=== PATIENT | male | born 1950 | race African-American/Black ===

== ENCOUNTER 2018-12-20 04:07 | Observation (INO) | payer OTHER ==
[2018-12-20 05:26] LABS: Absolute Lymphocytes (CBC) 0.5 K/uL (0.7-4.9); Basophils % 0.2 % (0-1.3); Eosinophils % 0.4 % (0-4.4); Hematocrit 48.2 % (39.6-49.0); Lymphocytes % 5.4 % (15.3-44.8); MPV 8.8 fL (7.6-11.3); Monocytes % 10.2 % (3.3-12.3); RBC Red Blood Cell Count 5.79 M/uL (4.33-5.43)
[2018-12-20] MEDS ORDERED: ACETAMINOPHEN 325 MG TABLET ONE (05:37)
[2018-12-20] MEDS ORDERED: CEFTRIAXONE/SWI 1gm 1 GM/10 ML SYR ONE (05:38)
[2018-12-20] MEDS ORDERED: NA CHLORIDE 0.9% 1,000 ML ONE ×3 (05:38→07:57)
[2018-12-20 05:46] LABS: Urine Bacteria <20 /HPF (NONE SEEN); Urine Culture Reflex Order NOT NEEDED; Urine RBC TNTC /HPF (NONE SEEN)
[2018-12-20 06:03] LABS: Potassium 4.5 mmol/L (3.5-5.1)
[2018-12-20] MEDS ORDERED: IBUPROFEN 400 MG TAB ONE (07:07)
--- NOTE | 2018-12-20 08:39 | ER ---
Nurse's Notes [facility] Name: Stanley Woodson Age: 68 yrs Sex: Male : 1950 Arrival Date: 12/20/2018 Time: 04:09 Bed 20 Private MD: John Pederson V Diagnosis: Other sepsis;Acute prostatitis;Hypotension Presentation: 12/20 04:38 Presenting complaint: Patient states: Diagnosed with UTI few days ago now having fever ao and nausea. Transition of care: patient was not received from another setting of care. Onset of symptoms is unknown. Risk Assessment: Do you want to hurt yourself or someone else? Patient reports no desire to harm self or others. Initial Sepsis Screen: Does the patient meet any 2 criteria? Temp <36.0*C (96.8*F)) or > 38.3*C (100.9*F). HR > 90 bpm. Yes Does the patient have a suspected source of infection? Yes: Dysuria/Frequency/Urgency/UTI. Care prior to arrival: None. 04:38 Method Of Arrival: Ambulatory ao 04:38 Acuity: WIL[place] 3 ao Historical: - Allergies: 04:41 NKA; ao - Home Meds: 04:41 losartan Oral [Active]; Cipro Oral [Active]; ao - PMHx: 04:41 Hypertension; ao - PSHx: 04:41 None; ao - Immunization history:: Adult Immunizations up to date. - Social history:: Smoking status: Patient/guardian denies using tobacco, Patient/guardian denies using alcohol, street drugs. - Ebola Screening: : Patient negative for fever greater than or equal to 101.5 degrees Fahrenheit, and additional compatible Ebola Virus Disease symptoms Patient denies exposure to infectious person Patient denies travel to an Ebola-affected area in the 21 days before illness onset. - Family history:: not pertinent. - Hospitalizations: : No recent hospitalization is reported. Screenin:44 Abuse screen: Denies threats or abuse. Denies injuries from another. Nutritional ao screening: No deficits noted. Tuberculosis screening: No symptoms or risk factors identified. Fall Risk None identified. Assessment: 04:42 General: Appears in no apparent distress. comfortable, Behavior is calm, cooperative, ao appropriate for age. Pain: Denies pain. Neuro: Level of Consciousness is awake, alert, obeys commands, Oriented to person, place, time, situation, Appropriate for age Moves all extremities. Full function Speech is normal, Facial symmetry appears normal. Cardiovascular: Capillary refill < 3 seconds Patient's skin is warm and dry. Respiratory: Airway is patent Respiratory effort is even, unlabored, Respiratory pattern is regular, symmetrical. GI: Abdomen is non-distended. : Reports urinary frequency, since 3 day ago. EENT: No signs and/or symptoms were reported regarding the EENT system. Derm: No signs and/or symptoms reported regarding the dermatologic system. Musculoskeletal: Circulation, motion, and sensation intact. Range of motion:. 05:50 Reassessment: Patient appears in no apparent distress at this time. Patient and/or ao family updated on plan of care and expected duration. Pain level reassessed. Patient is alert, oriented x 3, equal unlabored respirations, skin warm/dry/pink. 06:45 Reassessment: Patient appears in no apparent distress at this time. Patient and/or ao family updated on plan of care and expected duration. Pain level reassessed. Patient is alert, oriented x 3, equal unlabored respirations, skin warm/dry/pink. Patient back from CT. Waiting on report. 07:33 Reassessment: Patient appears in no apparent distress at this time. Reassessment: hb Patient appears in no apparent distress at this time. Patient and/or family updated on plan of care and expected duration. Pain level reassessed. 08:30 Reassessment: Patient appears in no apparent distress at this time. Patient and/or hb family updated on plan of care and expected duration. Pain level reassessed. Patient is alert, oriented x 3, equal unlabored respirations, skin warm/dry/pink. 09:30 Reassessment: Patient appears in no apparent distress at this time. Patient and/or hb family updated on plan of care and expected duration. Pain level reassessed. Patient is alert, oriented x 3, equal unlabored respirations, skin warm/dry/pink. Vital Signs: 04:41 BP 126 / 63; Pulse 105; Resp 20; Temp 101.5(O); Pulse Ox 98% on R/A; Weight 74.84 kg ao (R); Height 5 ft. 4 in. (162.56 cm) (R); 05:42 BP 99 / 60; Pulse 98; Resp 18; Pulse Ox 98% on R/A; Pain 0/10; ao 05:50 BP 101 / 53; Pulse 107; Resp 20; Temp 101.7(O); Pulse Ox 96% on R/A; Pain 0/10; ao 07:30 BP 90 / 53; Pulse 88; Resp 23; Pulse Ox 96% on R/A; hb 07:50 Temp 99.5(O); hb 08:26 BP 99 / 56; Pulse 82; Resp 20; Temp 99.0(O); Pulse Ox 95% on R/A; mh5 09:20 BP 93 / 59; Pulse 72; Resp 14; Temp 98.6(O); Pulse Ox 97% on R/A; mh5 04:41 Body Mass Index 28.32 (74.84 kg, 162.56 cm) ao ED Course: 04:09 Patient arrived in ED. am2 04:09 John Pederson MD is Private Physician. am2 04:20 Scott Mae MD is Attending Physician. rn 04:38 Chandana Lerma RN is Primary Nurse. ao 04:39 Triage completed. ao 04:42 Arm band placed on right wrist. 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 04:44 Patient has correct armband on for positive identification. 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 Pulse ao ox on. NIBP on. 05:34 Urine Culture Sent. ao 06:10 X-ray completed. Portable x-ray completed in exam room. Patient tolerated procedure kw well. 06:11 XRAY Chest (1 view) In Process Unspecified. EDMS 06:45 CT completed. Patient tolerated procedure well. Patient moved to CT via stretcher. Patient moved back from CT. 06:49 Stone Protocol In Process Unspecified. EDMS 06:49 Andrew Fernandes PA is PHCP. cp 08:37 John Pederson MD is Hospitalizing Provider. cp 10:00 No provider procedures requiring assistance completed. hb 10:00 Patient admitted, IV remains in place. hb Administered Medications: 05:33 Drug: Tylenol 650 mg Route: PO; ao 07:04 Follow up: Response: No adverse reaction ao 05:33 Drug: NS 0.9% 1000 ml Route: IV; Rate: 1000 ml; Site: right antecubital; ao 07:05 Follow up: IV Status: Completed infusion; IV Intake: 1000ml ao 05:34 Drug: Rocephin - (cefTRIAXone) 1 grams Route: IVPB; Infused Over: 30 mins; Site: right ao antecubital; 07:05 Follow up: Response: No adverse reaction ao 06:54 Drug: Ibuprofen 800 mg Route: PO; ao 07:45 Follow up: Response: No adverse reaction; Temperature is decreased hb 07:04 Drug: NS 0.9% (30 ml/kg) 30 ml/kg Route: IV; Rate: bolus; Site: right antecubital; ao 08:33 Follow up: Response: No adverse reaction; IV Status: Completed infusion; IV Intake: hb 2400ml 09:06 Drug: NS 0.9% 1000 ml Route: IV; Rate: 125 ml/hr; Site: right antecubital; hb 10:01 Follow up: Response: No adverse reaction; IV Status: Infusion continued upon admission; hb IV Intake: 250ml Intake: 07:05 IV: 1000ml; Total: 1000ml. ao 08:33 IV: 2400ml; Total: 3400ml. hb 10:01 IV: 250ml; Total: 3650ml. hb Outcome: 08:38 Decision to Hospitalize by Provider. cp 10:00 Admitted to Tele accompanied by tech, via wheelchair, with chart. hb 10:00 Condition: stable 10:00 Instructed on the need for admit, Demonstrated understanding of instructions. 10:01 Patient left the ED. hb Signatures: Dispatcher [employer] David Hale Roman, MD MD rn Whitley, Kimberlee kw Page, Corey, PA PA Chandana Lerma RN RN ao Baxter, Heather, RN RN Shavonne Morales [facility] Ce Rogel Corrections: (The following items were deleted from the chart) 08:32 08:26 BP 99 / 56; Pulse 82bpm; Resp 20bpm; Pulse Ox 95% RA; mh5 mh5
--- NOTE | 2018-12-20 08:39 | EDPHYS ---
Physician Documentation [facility] Name: Stanley Woodson Age: 68 yrs Sex: Male : 1950 Arrival Date: 12/20/2018 Time: 04:09 Bed 20 Private MD: John Pederson V ED Physician Scott Mae HPI: 12/20 05:17 This 68 yrs old Black Male presents to ER via Ambulatory with complaints of Urinary rn Problem, Fever. 05:17 The patient reports fever, that was measured at 103 degrees Fahrenheit. Onset: The rn symptoms/episode began/occurred 4 day(s) ago. Modifying factors: there are no obvious modifying factors. Associated signs and symptoms: Pertinent negatives: abdominal pain, backache, cough, headache, hemoptysis, skin rash, shortness of breath, sore throat, swelling, vomiting. Severity of symptoms: At their worst the symptoms were mild in the emergency department the symptoms are unchanged. The patient has not experienced similar symptoms in the past. The patient has been recently seen by a physician:. Recently diagnosed and taking cipro for UTI. Reports 2 days of abx and still having fever, + generalized weakness, + dysuria. No flank pain. No cough/sob/abd pain. No known prostate problems. No sore throat/congestion/headache/neck pain/rash.. Historical: - Allergies: 04:41 NKA; ao - Home Meds: 04:41 losartan Oral [Active]; Cipro Oral [Active]; ao - PMHx: 04:41 Hypertension; ao - PSHx: 04:41 None; ao - Immunization history:: Adult Immunizations up to date. - Social history:: Smoking status: Patient/guardian denies using tobacco, Patient/guardian denies using alcohol, street drugs. - Ebola Screening: : Patient negative for fever greater than or equal to 101.5 degrees Fahrenheit, and additional compatible Ebola Virus Disease symptoms Patient denies exposure to infectious person Patient denies travel to an Ebola-affected area in the 21 days before illness onset. - Family history:: not pertinent. - Hospitalizations: : No recent hospitalization is reported. ROS: 05:17 Constitutional: + fever and chills Eyes: Negative for injury, pain, redness, and hose turner, Neck: Negative for injury, pain, and swelling, Cardiovascular: Negative for chest pain, palpitations, and edema, Respiratory: Negative for shortness of breath, cough, wheezing, and pleuritic chest pain, Abdomen/GI: Negative for abdominal pain, nausea, vomiting, diarrhea, and constipation, Back: Negative for injury and pain, : + dysuria MS/Extremity: Negative for injury and deformity, Skin: Negative for injury, rash, and discoloration, Neuro: Negative for headache, numbness, tingling, and seizure. Exam: 05:17 Constitutional: This is a well developed, well nourished patient who is awake, alert, rn and in no acute distress. Ambulatory to room without difficulty or distress Head/Face: Normocephalic, atraumatic. Eyes: Pupils equal round and reactive to light, extra-ocular motions intact. Lids and lashes normal. Conjunctiva and sclera are non-icteric and not injected. Cornea within normal limits. Periorbital areas with no swelling, redness, or edema. ENT: MMM Neck: Trachea midline, no thyromegaly or masses palpated, and no cervical lymphadenopathy. Supple, full range of motion without nuchal rigidity, or vertebral point tenderness. No Meningismus. Cardiovascular: tachycardic, regular, no murmur Respiratory: No increased work of breathing, no retractions or nasal flaring. Abdomen/GI: soft, non-tender Back: No spinal tenderness. No costovertebral tenderness. Full range of motion. Skin: Warm, dry, no evidence of cellulitis. MS/ Extremity: Pulses equal, no cyanosis. Neurovascular intact. Full, normal range of motion. Equal circumference. Neuro: Awake and alert, GCS 15, oriented to person, place, time, and situation. Cranial nerves II-XII grossly intact. Motor strength 5/5 in all extremities. Sensory grossly intact. Cerebellar exam normal. Normal gait. Vital Signs: 04:41 BP 126 / 63; Pulse 105; Resp 20; Temp 101.5(O); Pulse Ox 98% on R/A; Weight 74.84 kg ao (R); Height 5 ft. 4 in. (162.56 cm) (R); 05:42 BP 99 / 60; Pulse 98; Resp 18; Pulse Ox 98% on R/A; Pain 0/10; ao 05:50 BP 101 / 53; Pulse 107; Resp 20; Temp 101.7(O); Pulse Ox 96% on R/A; Pain 0/10; ao 07:30 BP 90 / 53; Pulse 88; Resp 23; Pulse Ox 96% on R/A; hb 07:50 Temp 99.5(O); hb 08:26 BP 99 / 56; Pulse 82; Resp 20; Temp 99.0(O); Pulse Ox 95% on R/A; mh5 09:20 BP 93 / 59; Pulse 72; Resp 14; Temp 98.6(O); Pulse Ox 97% on R/A; mh5 04:41 Body Mass Index 28.32 (74.84 kg, 162.56 cm) ao MDM: 04:20 Patient medically screened. rn 06:47 Differential diagnosis: viral Infection, bacterial infection, pneumonia UTI, rn prostatitis, kidney stone. Data reviewed: vital signs, nurses notes, lab test result(s). ED course: Signed out to ELMER Tee pending CT stone protocol. Symptoms most consistent with UTI/prostatitis, rocephin given after blood and urine culture. Anticipate admission given persistent fever, weakness, and failure outpt therapy despite abx. . 07:43 Physician consultation: John Pederson MD was called at 07:44, left message with cp answering service. 08:30 Physician consultation: John Pederson MD was contacted at 08:30, regarding admission, to the telemetry unit. patient's condition. 08:30 Physician consultation: John Pederson MD was contacted at 08:30, regarding admission, to the telemetry unit. patient's condition. 08:30 Response to treatment: the patient's symptoms have mildly improved after treatment. cp 12/20 04:39 Order name: CBC with Diff rn 12/20 04:39 Order name: Basic Metabolic Panel rn 12/20 04:39 Order name: Urine Culture rn 12/20 04:39 Order name: Urine Microscopic Only; Complete Time: 06:09 rn 12/20 04:39 Order name: Blood Culture Adult (2) rn 12/20 04:39 Order name: Procalcitonin; Complete Time: 06:09 rn 12/20 04:39 Order name: Lactate; Complete Time: 06:09 rn 12/20 04:41 Order name: CBC with Automated Diff; Complete Time: 05:46 EDMS 12/20 04:41 Order name: Basic Metabolic Panel; Complete Time: 06:09 EDOK 12/20 04:41 Order name: Urine Culture EDOK 12/20 05:48 Order name: XRAY Chest (1 view) rn 12/20 06:30 Order name: Stone Protocol [facility] 12/20 04:39 Order name: IV Start; Complete Time: 05:34 rn 12/20 04:39 Order name: Urine Dipstick-Ancillary (obtain specimen); Complete Time: 05:34 rn 12/20 08:51 Order name: Regular EDMS Administered Medications: 05:33 Drug: Tylenol 650 mg Route: PO; ao 07:04 Follow up: Response: No adverse reaction ao 05:33 Drug: NS 0.9% 1000 ml Route: IV; Rate: 1000 ml; Site: right antecubital; ao 07:05 Follow up: IV Status: Completed infusion; IV Intake: 1000ml ao 05:34 Drug: Rocephin - (cefTRIAXone) 1 grams Route: IVPB; Infused Over: 30 mins; Site: right ao antecubital; 07:05 Follow up: Response: No adverse reaction ao 06:54 Drug: Ibuprofen 800 mg Route: PO; ao 07:45 Follow up: Response: No adverse reaction; Temperature is decreased hb 07:04 Drug: NS 0.9% (30 ml/kg) 30 ml/kg Route: IV; Rate: bolus; Site: right antecubital; ao 08:33 Follow up: Response: No adverse reaction; IV Status: Completed infusion; IV Intake: hb 2400ml 09:06 Drug: NS 0.9% 1000 ml Route: IV; Rate: 125 ml/hr; Site: right antecubital; hb 10:01 Follow up: Response: No adverse reaction; IV Status: Infusion continued upon admission; hb IV Intake: 250ml Disposition: 12/20/18 08:38 Hospitalization ordered by John Pederson for Observation. Preliminary diagnosis are Other sepsis, Acute prostatitis, Hypotension. - Bed requested for Telemetry/MedSurg (observation). - Status is Observation. hb - Condition is Stable. - Problem is new. - Symptoms have improved. UTI on Admission? Yes Addendum: 12/22/2018 07:00 Co-signature as Attending Physician, Scott Mae MD. r n Signatures: Dispatcher [employer] [facility] Scott Mae MD MD rn Andrew Fernandes PA PA cp Chandana Lerma, RN RN ao Emelyn Paez, RN RN Sahara Bettencourt Corrections: (The following items were deleted from the chart) 12/20 06:30 05:49 Abdomen Pelvis W Con+CT.RAD.BRZ ordered. [facility] EDMS 08:38 08:38 Hospitalization Ordered by John Pederson MD for Observation. Preliminary diagnosis cp is Other sepsis; Acute prostatitis. Bed requested for Telemetry/MedSurg (observation). Status is Observation. Condition is Stable. Problem is new. Symptoms have improved. UTI on Admission? Yes. cp 09:37 08:38 12/20/2018 08:38 Hospitalization Ordered by John Pederson MD for Observation. eb Preliminary diagnosis is Other sepsis; Acute prostatitis; Hypotension. Bed requested for Telemetry/MedSurg (observation). Status is Observation. Condition is Stable. Problem is new. Symptoms have improved. UTI on Admission? Yes. cp 10:01 09:37 12/20/2018 08:38 Hospitalization Ordered by John Pederson MD for Observation. hb Preliminary diagnosis is Other sepsis; Acute prostatitis; Hypotension. Bed requested for Telemetry/MedSurg (observation). Status is Observation. Condition is Stable. Problem is new. Symptoms have improved. UTI on Admission? Yes. eb
[2018-12-20] MEDS ORDERED: ONDANSETRON 4 MG/2 ML VIAL IV PRN (08:45)
[2018-12-20] MEDS ORDERED: ACETAMINOPHEN 500 MG TAB PO PRN (08:45)
--- NOTE | 2018-12-20 08:56 | RAD REPORT ---
EXAM DESCRIPTION: RAD - Chest Single View - 12/20/2018 6:11 am CLINICAL HISTORY: Fever COMPARISON: March 2013 TECHNIQUE: AP portable chest image was obtained 0607 hours . FINDINGS: Lungs are clear. Heart and vasculature are normal. No measurable pleural effusion and no p neumothorax. No acute bony abnormality seen. No acute aortic findings suspected. IMPRESSION: No acute cardiopulmonary process. No significant interval change.
[2018-12-20] MEDS ORDERED: CEFTRIAXONE 1 GM/NS 50 ML 1 GM/50 ML BAG IV SCH (09:00)
[2018-12-20] MEDS: NA CHLORIDE 0.9% 1,000 ML IV SCH ×4 (09:00→22:38)
--- NOTE | 2018-12-20 10:30 | RAD REPORT ---
EXAM DESCRIPTION: CT - Stone Protocol - 12/20/2018 7:13 am CLINICAL HISTORY: The patient is 68 years old and is Male; fever, urinary symptoms, eval for pyelo v s prostatitis TECHNIQUE: Axial computed tomography images of the abdomen and pelvis without intravenous contrast. Sagittal and coronal reformatted images were created and reviewed. This CT exam was performed usi ng one or more of the following dose reduction techniques: automated exposure control, adjustment o f the mA and/or kV according to patient size, and/or use of iterative reconstruction technique. COMPARISON: No relevant prior studies available. FINDINGS: Lung bases: Unremarkable. No mass. No consolidation. ABDOMEN: Liver: Unremarkable. Gallbladder and bile ducts: Unremarkable. No calcified stones. No ductal dilation. Pancreas: Unremarkable. No ductal dilation. Spleen: Unremarkable. No splenomegaly. Adrenals: 2 cm right adrenal nodule with attenuation suggestive of lipid rich adenoma. Kidneys and ureters: Right renal 2.2 cm cyst. No obstructing stones. No hydronephrosis. Stomach and bowel: Colonic diverticulosis without evidence of diverticulitis. No obstruction. PELVIS: Appendix: The appendix is seen and is within normal limits Bladder: Minimal stranding surrounding the bladder may secondary to cystitis. No stones. Reproductive: Enlarged prostate with question minimal surrounding haziness. Correlate for prosta titis. ABDOMEN and PELVIS: Intraperitoneal space: Unremarkable. No free air. No significant fluid collection. Bones/joints: No acute fracture. No dislocation. Soft tissues: Unremarkable. Vasculature: Unremarkable. No abdominal aortic aneurysm. Lymph nodes: Unremarkable. No enlarged lymph nodes. IMPRESSION: 1. Enlarged prostate with question minimal surrounding haziness. Correlate for prostat itis. 2. Minimal stranding surrounding the bladder may secondary to cystitis. 3. Colonic diverticulosis without evidence of diverticulitis. Electronically signed by: Ben Bhagat MD 12/20/2018 7:06 AM CDT Due to temporary technical issues with the PACS/Fluency reporting system, reports are being signed by the in house radiologist as a courtesy to ensure prompt reporting. The interpreting radiologist is f ully responsible for the content of the report.
--- NOTE | 2018-12-20 17:19 | P.HP ---
Certification for Inpatient Patient admitted to: Observation With expected LOS: <2 Midnights Practitioner: I am a practitioner with admitting privileges, knowledge of patient current condition, hospital course, and medical plan of care. Services: Services provided to patient in accordance with Admission requirements found in Title 42 Section 412.3 of the Code of Federal Regulations Patient History Date of Service: 12/20/18 Reason for admission: URINARY BURNING AND FEVER History of Present Illness: MR. STARKS WENT TO URGENT CARE GOT [facility] FOR UTI. HE DID NOT DO WELL, KEPT ON HAVING FEVER SO CAME TO ER. HE HAS 101 FEVER WHEN HE CAME AND STARTED WITH HEMATURIA. HE IS LOT BETTER WITH ROCEPHIN. Allergies No Known Allergies Allergy (Unverified 09/10/16 15:14) Home Medications: Losartan Potassium [Cozaar] 50 mg PO DAILY 12/20/18 - Past Medical/Surgical History Has patient received pneumonia vaccine in the past: No Diabetic: No -: Hypertention -: Appendectomy -: Right Knee Surgery - Social History Smoking Status: Never smoker Alcohol use: No CD- Drugs: No Caffeine use: Yes Place of Residence: Home Review of Systems 10-point ROS is otherwise unremarkable General: Weakness Physical Examination - Vital Signs Temperature: 97.4 F Blood Pressure: 111/57 Pulse: 96 Respirations: 18 Pulse Ox (%): 97 - Physical Exam General: Alert, In no apparent distress HEENT: Atraumatic, PERRLA, Mucous membr. moist/pink, EOMI, Sclerae nonicteric Neck: Supple, 2+ carotid pulse no bruit, No LAD, Without JVD or thyroid abnormality Respiratory: Clear to auscultation bilaterally, Normal air movement Cardiovascular: Regular rate/rhythm, Normal S1 S2 Gastrointestinal: Normal bowel sounds, No tenderness Musculoskeletal: No tenderness Integumentary: No rashes Neurological: Normal gait, Normal speech, Normal strength at 5/5 x4 extr, Normal tone, Normal affect Lymphatics: No axilla or inguinal lymphadenopathy - Studies Laboratory Data (last 24 hrs) 12/20/18 05:00: Sodium 137, Potassium 4.5, BUN 16, Creatinine 1.65 H, Glucose 111 H 12/20/18 05:00: WBC 10.2, Hgb 15.7, Hct 48.2, Plt Count 134 L Assessment and Plan - Problems (Diagnosis) (1) Acute prostatitis Current Visit: Yes Status: Acute Plan: ROCEPHIN BID. HEMATURIA SHOULD RESOLVE. WILL SEE DR. GALE LATER. (2) Dehydration Current Visit: Yes Status: Acute Plan: IV FLUIDS ORDERED. - Advance Directives Does patient have a Living Will: No Does patient have a Durable POA for Healthcare: No
[2018-12-20] MEDS: CEFTRIAXONE/SWI 1gm 1 GM/10 ML SYR IV SCH (22:21)
[2018-12-21] MEDS: NA CHLORIDE 0.9% 1,000 ML IV SCH (05:29)
[2018-12-21 05:59] LABS: Potassium 4.4 mmol/L (3.5-5.1)
[2018-12-21 06:01] LABS: Absolute Lymphocytes (CBC) 1.1 K/uL (0.7-4.9); Basophils % 0.3 % (0-1.3); Eosinophils % 1.3 % (0-4.4); Hematocrit 41.5 % (39.6-49.0); Lymphocytes % 9.3 % (15.3-44.8); MPV 9.1 fL (7.6-11.3); RBC Red Blood Cell Count 4.97 M/uL (4.33-5.43)
[2018-12-21 08:15] LABS: Blood Morphology Comment NOT SEEN (NOT SEEN); Platelet Estimate ADEQ
[2018-12-21] MEDS: CEFTRIAXONE/SWI 1gm 1 GM/10 ML SYR IV SCH (09:46)
--- NOTE | 2018-12-21 14:09 | P.DS ---
Admission Date: 12/20/18 Discharge Date: 12/21/18 Disposition: ROUTINE DISCHARGE Discharge Condition: FAIR Reason for Admission: URINARY BURNING AND FEVER - Problems (1) Acute prostatitis Current Visit: Yes Status: Acute (2) Dehydration Current Visit: Yes Status: Acute Brief History of Present Illness: MR. STARKS WENT TO URGENT CARE GOT [facility] FOR UTI. HE DID NOT DO WELL, KEPT ON HAVING FEVER SO CAME TO ER. HE HAS 101 FEVER WHEN HE CAME AND STARTED WITH HEMATURIA. HE IS LOT BETTER WITH ROCEPHIN. GENE IS DOING GREAT. HE IS SITTING UP. HAS NO FEVER. HE HAS NO HEMATURIA. HE WILL GO HOME ON CEFTIN AND FU WITH DR. GALE. Vital Signs/Physical Exam: Temp Pulse Resp BP Pulse Ox 98.8 F 53 17 130/68 98 12/21/18 12:00 12/21/18 12:00 12/21/18 12:00 12/21/18 12:00 12/21/18 12:00 Laboratory Data at Discharge: WBC 11.4 K/uL (4.3-10.9) H 12/21/18 05:30 Hgb 13.6 g/dL (13.6-17.9) 12/21/18 05:30 Hct 41.5 % (39.6-49.0) 12/21/18 05:30 Plt Count 124 K/uL (152-406) L 12/21/18 05:30 Sodium 143 mmol/L (136-145) 12/21/18 05:30 Potassium 4.4 mmol/L (3.5-5.1) 12/21/18 05:30 BUN 12 mg/dL (7-18) 12/21/18 05:30 Creatinine 1.28 mg/dL (0.55-1.3) 12/21/18 05:30 Glucose 83 mg/dL (74-106) 12/21/18 05:30 Home Medications: Cefuroxime [Ceftin] 250 mg PO BID #28 tab 12/21/18 New Medications: Cefuroxime [Ceftin] 250 mg PO BID #28 tab
== END 2018-12-21 15:06 | disposition home or self-care (01) ==
LOC: ER 04:07 → ERHOLD 08:44 → 4TH 09:53
PROVIDERS: ADMIT Internal Medicine; ATTEND Internal Medicine
DX: N41.0 Acute prostatitis (principal); E86.0 Dehydration; I10 Essential (primary) hypertension
CPT/HCPCS: 96365; 96361; 87040 ×2; 87088; 85025 ×2; 80048 ×2; 36415 ×2; 83605; 81015; 84145; 76377; 74176; 71045; 96375; 99285; J0696 ×3; J7030 ×6; G0378 ×2; 87086

== ENCOUNTER 2025-01-31 09:34 | Emergency (ER) | payer OTHER ==
[2025-01-31 10:14] LABS: Absolute Lymphocytes (CBC) 1.3 K/uL (0.7-4.9); Hematocrit 46.0 % (39.6-49.0); Hemoglobin 15.2 g/dL (13.6-17.9); MCH 27.5 pg (27.0-35.0); MCHC 33.0 g/dL (32.0-36.0); MCV 83.4 fL (80-100); MPV 7.8 fL (7.6-11.3); Nucleated RBC Absolute Count 0.0 (0-0); Nucleated Red Blood Cells % 0.0 % (0-0); RBC Red Blood Cell Count 5.51 M/uL (4.33-5.43); White Blood Count 9.20 thou/uL (4.3-10.9)
--- NOTE | 2025-01-31 10:47 | RAD REPORT ---
EXAM: Chest Single View HISTORY: 74 years Male syncope COMPARISON: 01/17/2025 FINDINGS: LUNGS/PLEURA: The lungs are clear. No pleural effusions or pneumothorax. No pulmonary edema. CARDIAC/MEDIASTINUM: The cardiac silhouette is within normal limits. UPPER ABDOMEN: No significant abnormality. BONES: No acute abnormality. LINES/TUBES/OTHER: N/A IMPRESSION: No evidence of acute cardiopulmonary disease.
[2025-01-31 10:58] LABS: D-Dimer 2.484 FEUug/mL (0-0.500); PT Prothrombin Time 17.3 SECONDS (10-13.0); Protime INR 1.55
--- NOTE | 2025-01-31 11:02 | RAD REPORT ---
EXAMINATION: Head C Spine Mpr Wo Con CLINICAL INDICATION: Male, 74 years old. fall h/o subdural TECHNIQUE: Axial CT images from the skull base to the vertex without intravenous contrast. Axial CT i mages through the cervical spine were obtained without intravenous contrast. Sagittal and coronal reformatted images were created from the data set. Coronal and sagittal reformatted images were creat ed from the data set. One or more of the following dose reduction techniques were used: Automated exposure control, adjustment of the mA and/or kV according to patient size, and/or iterative reconstr uction. Unless otherwise specified, incidental findings do not require dedicated imaging follow-up. [id number]. COMPARISON: 01/17/2025 FINDINGS: Head: INTRACRANIAL: Symmetric bilateral extra-axial subdural hematomas. The attenuation of the hematomas co uld reflect new acute hemorrhage. The hemorrhage measures under 6 mm in maximal thickness but does appear increased in size along the left temporal lobe from prior. No acute large vascular territory i nfarct. No hydrocephalus. No mass effect or midline shift. No significant white matter disease. VASCULATURE: No visualized abnormalities in the arteries or dural venous sinuses. SCALP/SKULL: No calvarial fracture identified. No acute soft tissue abnormality. Left forehead hemat luna. SINUSES: Bilateral maxillary sinus mucosal thickening. No significant mastoid fluid. Cervical spine: ALIGNMENT: The cervical spine has normal alignment without scoliosis or spondylolisthesis. BONE: Vertebral body heights are maintained. No aggressive osseous lesions. DEGENERATIVE: Multilevel cervical spondylosis with evidence of bilateral neural foraminal narrowing. No high grade central spinal stenosis. SOFT TISSUE: No significant abnormalities in the soft tissue of the neck. The visualized lung apices are clear. IMPRESSION: Bilateral subdural hematomas measuring under 1 cm in maximal thickness. Though they are small, the mckeon bdural hematoma does appear larger at the left temporal lobe compared with prior. This could reflect new acute hemorrhage. No acute fracture or traumatic malalignment of the cervical spine.
[2025-01-31 11:07] LABS: ALT/SGPT 16.0 U/L (16-61); AST/SGOT 16.0 U/L (15-37); Albumin 3.4 g/dL (3.4-5.0); Albumin/Globulin Ratio 0.9 (1.1-1.8); Alkaline Phosphatase 59.0 U/L (45-117); Anion Gap 10.2 mEq/L (5.0-15.0); BUN Blood Urea Nitrogen 16.0 mg/dL (7-18); Bilirubin Indirect, Calculated 1.3 mg/dL (0.2-0.8); Globulin 3.8 g/dL (2.3-3.5); Glucose Level 90.0 mg/dL (74-106); Magnesium 2.3 mg/dL (1.6-2.4); NT PRO-BNP 48.0 pg/mL (<125); Potassium 4.2 mEq/L (3.5-5.1); Troponin High Sensitivity 20.5 pg/mL (<58.9)
--- NOTE | 2025-01-31 11:19 | ER ---
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 EMS states: VSS, fingerstick 73, 20 R AC NS 100 ml IV given. Tylenol 650 PO given. Coronavirus screen: Client denies travel out of the [place] in the last 14 days. At this time, the client does not indicate any symptoms associated with coronavirus-19. Ebola Screen: Patient denies travel to an Ebola-affected area in the 21 days before illness onset. Initial Sepsis Screen: Does the patient meet any 2 criteria? No. Patient's initial sepsis screen is negative. Does the patient have a suspected source of infection? No. Patient's initial sepsis screen is negative. Risk Assessment: Do you want to hurt yourself or someone else? Patient reports no desire to harm self or others. Onset of symptoms was January 31, 2025. 09:49 Method Of Arrival: EMS: [facility] 1 09:49 Acuity: WILTON 2 ll1 Triage Assessment: 09:51 General: Appears uncomfortable, Behavior is calm, cooperative, appropriate for age, ll1 Reports fatigue for. Pain: Complains of pain in L neck/shoulder Quality of pain is described as aching. Neuro: Reports dizziness, a syncopal episode weakness. Musculoskeletal: Circulation, motion, and sensation intact. Capillary refill < 3 seconds, in bilateral fingers. Reports pain in L neck/shoulder. Injury Description: Head injury. Historical: - Allergies: 09:50 Aspirin; ll1 09:50 NSAIDS; ll1 - PMHx: 09:50 Hypertension; pre-diabetic (Hypertension); subdural bleed (Appendectomy); ll1 - PSHx: 09:50 Appendectomy; ll1 - Immunization history:: Adult Immunizations up to date. - Infectious Disease History:: Denies. - Social history:: Smoking status: Patient denies any tobacco usage or history of. Screenin:56 [facility] ED Fall Risk Assessment (Adult) History of falling in the last 3 months, ll1 including since admission Yes- physiologic fall (2 pts) Confusion or Disorientation No (0 pts) Intoxicated or Sedated No (0 pts) Impaired Gait No (0 pts) Mobility Assist Device Used Yes (1 pt) Altered Elimination No (0 pt) Score/Fall Risk Level 3 or more points = High Risk Maintained a safe environment, Hourly rounding (assess needs \T\ fall precautionary measures) done. Abuse screen: Denies threats or abuse. Nutritional screening: No deficits noted. Tuberculosis screening: No symptoms or risk factors identified. Assessment: 10:35 Reassessment: No changes from previously documented assessment. Patient and/or family ll1 updated on plan of care and expected duration. Pain level reassessed. Patient is alert, oriented x 3, equal unlabored respirations, skin warm/dry/pink. 11:18 Reassessment: No changes from previously documented assessment. Patient and/or family ll1 updated on plan of care and expected duration. Pain level reassessed. Patient is alert, oriented x 3, equal unlabored respirations, skin warm/dry/pink. 11:56 Reassessment: attempt to call report, no answer. iw 12:09 Reassessment: No changes from previously documented assessment. Patient and/or family ll1 updated on plan of care and expected duration. Pain level reassessed. 12:53 Reassessment: No changes from previously documented assessment. Patient and/or family ll1 updated on plan of care and expected duration. Pain level reassessed. Patient is alert, oriented x 3, equal unlabored respirations, skin warm/dry/pink. Vital Signs: 09:49 BP 144 / 75; Pulse 50; Resp 16; Temp 98; Pulse Ox 100% on R/A; Weight 77.56 kg; Height ll1 5 ft. 7 in. ; Pain 8/10; 10:55 BP 134 / 74; Pulse 50; ll1 11:55 BP 137 / 75; Pulse 54; Resp 17; Pulse Ox 100% ; ll1 12:53 BP 137 / 90; Pulse 73; Resp 17; Pulse Ox 100% on R/A; ll1 09:49 Body Mass Index 26.78 (77.56 kg, 170.18 cm) ll1 09:49 Pain Scale: Adult ll1 ED Course: 09:44 Patient arrived in ED. em1 09:49 Swetha Cobos, RN is Primary Nurse. ll1 09:49 Surinder Engle MD is Attending Physician. jr11 09:50 Triage completed. ll1 09:50 Patient has correct armband on for positive identification. Provided Education on: ER ll1 procedures and process. 09:51 Arm band placed on Patient placed in an exam room, on a stretcher. ll1 09:52 Maintain EMS IV. Dressing intact. Good blood return noted. Site clean \T\ dry. Gauge \T\ ll 1 site: 20 G R AC. 10:13 CT Head C Spine In Process Unspecified. EDMS 10:38 XRAY Chest (1 view) In Process Unspecified. EDMS 11:20 Transfer initiated with Lead Sql Developer Arminda at [facility]. hb 11:37 Admin approval at [facility] given by supervisor transferring and boxing Sahara Dimas, admit to Dr. adela Lin, neuro ICU room 1022. 12:00 [facility] changing destination to ER, accepting physician Gabby Lerma, admin Arminda chapman RN. 12:17 Client placed on continuous cardiac and pulse oximetry monitoring. NIBP monitoring ll1 applied. it communications manager on. Warm blanket given. Pillow given. 12:17 UA Rfx Dong Cult if indicated Sent. ll1 12:17 Urine collected: clean catch specimen, clear, Amount Voided: 500mL. ll1 12:17 No provider procedures requiring assistance completed. Patient transferred, IV remains ll1 in place. 12:30 [facility] in route to transport patient to [facility]. hb Administered Medications: 09:59 Drug: NS 0.9% IV 1000 ml IV at 1000 ml once; to be given as a bolus over 60 minutes ll1 Route: IV; Rate: 1000 ml; Site: right antecubital; 12:16 Follow up: Response: No adverse reaction; IV Status: Completed infusion; IV Intake: ll1 1000ml 10:20 Not Given (given en routee): [id number] mg PO once ll1 Medication: 10:57 VIS not applicable for this client. ll1 Intake: 12:16 IV: 1000ml; Total: 1000ml. ll1 Outcome: 11:19 ER care complete, transfer ordered by . jr11 12:17 Condition: stable ll1 12:17 Instructed on the need for transfer, 12:53 Transferred by ground EMS to [facility], Transfer form completed. ll1 12:57 Patient left the ED. 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 EMS states: VSS, fingerstick 73, 20 R AC NS 100 ml IV given ll1
--- NOTE | 2025-01-31 11:19 | EDPHYS ---
Physician Documentation [facility] Name: Stanley Woodson Age: 74 yrs Sex: Male : 1950 Arrival Date: 01/31/2025 Time: 09:34 Bed 2 Private MD: ED Physician Surinder Engle HPI: 01/31 10:00 Chief Complaint: Syncope episode. History of Present Illness: The patient experienced a jr11 syncopal episode while sitting down after standing up to get some water. This episode occurred after blood work was initiated. The patient described feeling dizzy and lightheaded, which prompted them to sit back down. They reported a loss of consciousness and do not recall the events immediately following. Upon regaining consciousness, the patient noted a hematoma on the head. The patient also complained of pain on the left side of the ribs, which will require further investigation via x-ray. The syncopal episode is suspected to be related to orthostatic hypotension, as it occurred after a position change. Review of Systems: - Positive for dizziness, lightheadedness, loss of consciousness, head hematoma, and rib pain. - ROS otherwise negative. . Historical: - Allergies: 09:50 Aspirin; ll1 09:50 NSAIDS; ll1 - PMHx: 09:50 Hypertension; pre-diabetic (Hypertension); subdural bleed (Appendectomy); ll1 - PSHx: 09:50 Appendectomy; ll1 - Immunization history:: Adult Immunizations up to date. - Infectious Disease History:: Denies. - Social history:: Smoking status: Patient denies any tobacco usage or history of. Exam: 10:00 Constitutional: This is a well developed, well nourished patient who is awake, alert, jr11 and in no acute distress. Head/Face: L forehead 2x2cm hematoma Eyes: Extra-ocular motions intact. Lids and lashes normal. Conjunctiva and sclera are non-icteric and not injected. Cornea within normal limits. Periorbital areas with no swelling, redness, or edema. ENT: Nares patent. No nasal discharge, no septal abnormalities noted. Oropharynx with no redness, swelling, or masses, exudates, or evidence of obstruction, uvula midline. Mucous membranes moist. Neck: Trachea midline, no thyromegaly or masses palpated, and no cervical lymphadenopathy. Supple, full range of motion without nuchal rigidity, or vertebral point tenderness. No Meningismus. Chest/axilla: Normal chest wall appearance and motion. Nontender with no deformity. No lesions are appreciated. Cardiovascular: Regular rate and rhythm with a normal S1 and S2. No gallops, murmurs, or rubs. Normal PMI, no JVD. No pulse deficits. Respiratory: Lungs have equal breath sounds bilaterally, clear to auscultation and percussion. No rales, rhonchi or wheezes noted. No increased work of breathing, no retractions or nasal flaring. Abdomen/GI: Soft, non-tender, with normal bowel sounds. No distension or tympany. No guarding or rebound. No evidence of tenderness throughout. Back: No spinal tenderness. No costovertebral tenderness. Full range of motion. Skin: Warm, dry with normal turgor. Normal color with no rashes, no lesions, and no evidence of cellulitis. MS/ Extremity: Pulses equal, no cyanosis. Neurovascular intact. Full, normal range of motion. Vital Signs: 09:49 BP 144 / 75; Pulse 50; Resp 16; Temp 98; Pulse Ox 100% on R/A; Weight 77.56 kg; Height ll1 5 ft. 7 in. ; Pain 8/10; 10:55 BP 134 / 74; Pulse 50; ll1 11:55 BP 137 / 75; Pulse 54; Resp 17; Pulse Ox 100% ; ll1 12:53 BP 137 / 90; Pulse 73; Resp 17; Pulse Ox 100% on R/A; ll1 09:49 Body Mass Index 26.78 (77.56 kg, 170.18 cm) ll1 09:49 Pain Scale: Adult ll1 MDM: 09:57 Medical Screening Exam initiated jr11 10:00 Differential Diagnosis Medical Decision Makin. Orthostatic Hypotension: Most likely jr11 due to the syncopal episode occurring after standing up. 2. Vasovagal Syncope: Considered due to spontaneous nature of the episode. 3. Cardiac Arrhythmia: Less likely but needs to be ruled out due to potential life-threatening nature. 4. Neurological Event (e.g., seizure): Unlikely but considered due to loss of consciousness. Plan: - Conduct head and neck examination, especially focusing on the hematoma. - Perform x-ray of the left rib area to assess for any fractures. - Monitor vital signs closely and provide fluids as necessary. - Discuss findings with Dr. Pederson after blood work results. - Obtain urine sample for further analysis. - Provide bedside commode for the patient's comfort and safety. . 11:17 ED course: Dr Huff believes subdural is bigger in left, we will send to [facility]. 11:19 ED course: CT to my read, +subdural . 11:23 ED course: EKG interpreted by me shows sinus bradycardia rate of 53, normal axis, normal intervals, no acute ST changes. 11:34 ED course: Dr Altamirano accepted . 01/31 09:58 Order name: Basic Metabolic Panel; Complete Time: 11:15 01/31 09:58 Order name: CBC with Diff; Complete Time: 10:18 01/31 09:58 Order name: D-Dimer; Complete Time: 11:03 01/31 09:58 Order name: LFT's; Complete Time: 11:15 01/31 09:58 Order name: Magnesium; Complete Time: 11:15 01/31 09:58 Order name: NT PRO-BNP; Complete Time: 11:15 01/31 09:58 Order name: PT-INR; Complete Time: 11:03 01/31 09:58 Order name: Troponin HS; Complete Time: 11:15 01/31 09:58 Order name: UA Rfx Dong Cult if indicated 01/31 09:58 Order name: XRAY Chest (1 view); Complete Time: 11:03 01/31 09:58 Order name: CT Head C Spine; Complete Time: 11:03 01/31 09:58 Order name: Cardiac monitoring; Complete Time: 10:42 01/31 09:58 Order name: EKG - Nurse/Tech; Complete Time: 10:42 01/31 09:58 Order name: IV Saline Lock; Complete Time: 09:59 01/31 09:58 Order name: Labs collected and sent; Complete Time: 09:59 01/31 09:58 Order name: O2 Per Protocol; Complete Time: 09:59 01/31 09:58 Order name: O2 Sat Monitoring; Complete Time: 09:59 01/31 10:20 Order name: Labs - recollect needed: please recollect green and blue top; Complete em1 Time: 10:36 Administered Medications: 09:59 Drug: NS 0.9% IV 1000 ml IV at 1000 ml once; to be given as a bolus over 60 minutes ll1 Route: IV; Rate: 1000 ml; Site: right antecubital; 12:16 Follow up: Response: No adverse reaction; IV Status: Completed infusion; IV Intake: ll1 1000ml 10:20 Not Given (given en routee): [id number] mg PO once ll1 Disposition Summary: 01/31/25 11:19 Transfer Ordered Notes: Transfer Location: [facility] jr11 Reason: Higher level of care jr11 Condition: Stable jr11 Problem: an acute exacerbation jr11 Symptoms: are unchanged jr11 Accepting Physician: COURTNEY(01/31/25 12:57) ll1 Diagnosis - Traumatic subdural hemorrhage with loss of consciousness of unspecified duration jr11 Forms: - Medication Reconciliation Form jr11 - SBAR form jr11 Signatures: Dispatcher [employer] Melvin Mark em1 Swetha Cobos, OLGA RN ll1 Surinder Engle MD MD jr11 Corrections: (The following items were deleted from the chart) 09:58 09:58 BASIC METABOLIC PANEL+C.LAB.BRZ ordered. EDMS EDMS 09:58 09:58 CBC+H.LAB.BRZ ordered. EDMS EDMS 09:58 09:58 D-DIMER+COAG.LAB.BRZ ordered. EDMS EDMS 09:58 09:58 HEPATIC FUNCTION+C.LAB.BRZ ordered. EDMS EDMS 09:58 09:58 MAGNESIUM+C.LAB.BRZ ordered. EDMS EDMS 09:58 09:58 PROBNP+C.LAB.BRZ ordered. EDMS EDMS 09:58 09:58 PROTIME (+INR)+COAG.LAB.BRZ ordered. EDMS EDMS 09:58 09:58 Troponin High Sensitivity+C.LAB.BRZ ordered. EDMS EDMS 09:58 09:58 UA Rfx Dong Cult if indicated+U.LAB.BRZ ordered. EDMS EDMS 09:59 09:59 Chest Single View+RAD.RAD.BRZ ordered. EDMS EDMS 09:59 09:59 Head C Spine MPR Wo Con+CT.RAD.BRZ ordered. EDMS EDMS 12:57 11:19 [facility] jr11 ll1
[2025-01-31 12:23] LABS: Urine Microscopic Reflex YN NO UMIC
[2025-01-31 13:01] VITALS: TEMP 98; O2SAT 100
[2025-01-31 13:06] VITALS: BP 137/90
== END 2025-01-31 12:57 | disposition short-term general hospital (02) ==
LOC: ER 09:34
DX: S06.5X9A Traumatic subdural hemorrhage with loss of consciousness of unspecified duration, initial encounter (principal); I10 Essential (primary) hypertension
CPT/HCPCS: 36415; 70450; 71045; 72125; 80048; 80076; 81003; 83735; 83880; 84484; 85025; 85379; 85610; 93005; 96360; 96361; 99285